=== PATIENT | female | born 1960 | race Asian ===

== ENCOUNTER 2022-04-21 18:53 | Emergency (ER) | payer MEDICAID ==
[~2022-04-21] VITALS: Ht 152.4 cm; Wt 76.0 kg
[2022-04-21] MEDS ORDERED: LIDOCAINE 5% PATCH TOP SCH (22:30)
[2022-04-21] MEDS ORDERED: CYCLOBENZAPRINE 10MG TABLET PO ONE (22:30)
[2022-04-21] MEDS ORDERED: HYDROCODONE/ACETAMINOPHEN 5/325MG TABLET PO ONE (22:30)
[2022-04-21 22:45] VITALS: BP 172/81
[2022-04-21] MEDS ORDERED: HYDR-4001 MT (23:46)
[2022-04-21] MEDS ORDERED: NALO4SPR BOTHNSTRLS (23:46)
[2022-04-21] MEDS ORDERED: LIDO1ADH23 TP (23:46)
== END 2022-04-22 00:13 | disposition home or self-care (01) ==
LOC: ER 18:53
DX: M54.50 Low back pain, unspecified (principal); I12.9 Hypertensive chronic kidney disease with stage 1 through stage 4 chronic kidney disease, or unspecified chronic kidney disease; N18.9 Chronic kidney disease, unspecified; E78.00 Pure hypercholesterolemia, unspecified; Z90.49 Acquired absence of other specified parts of digestive tract
CPT/HCPCS: 99283